=== PATIENT | female | born 1950 | race Two or more races ===

== ENCOUNTER 2017-08-22 13:35 | Observation (INO) | payer OTHER ==
[2017-08-22 16:21] LABS: BASO % 0.5 % (0-2.0); EOS % 1.3 % (0-4.5); HEMATOCRIT 42.9 % (32.4-45.2); HEMOGLOBIN 13.8 GM/dL (10.7-15.3); LYMPH % 26.1 % (8-40); MCH 28.4 pg (25.7-33.7); MCHC 32.3 g/dl (32.0-36.0); MEAN CELL VOLUME 88.1 fl (80-96); NEUT % 59.1 % (42.8-82.8); PLATELET COUNT 254 K/MM3 (134-434); RBC 4.87 M/mm3 (3.60-5.2); RDW 14.2 % (11.6-15.6)
--- NOTE | 2017-08-22 16:29 | PDOC ---
History of Present Illness - General History Source: Patient Exam Limitations: No Limitations - History of Present Illness Initial Comments: 08/22/17 17:59 The patient is a 67-year-old female, accompanied by daughter, with a significant past medical history of HTN and hypercholesterolemia, who presents to the ED with cellulitis of the right leg that began on Thursday 08/17. The patient states that she noted a pustule on her leg that she tried to squeeze. Since then she has noted swelling and redness to the area. She denies any fever or chills. <Desiree Anderson - Last Filed: 08/22/17 18:32> <Robb Kern - Last Filed: 08/22/17 19:08> - General Chief Complaint: Pain Stated Complaint: RT LEG PAIN Time Seen by Provider: 08/22/17 15:11 Past History <Desiree Anderson - Last Filed: 08/22/17 18:32> - Past Medical History COPD: No HTN: Yes Hypercholesterolemia: Yes - Surgical History Abdominal Surgery: Yes (TUBAL LIGATION) - Suicide/Smoking/Psychosocial Hx Smoking History: Never smoked Hx Alcohol Use: No Substance Use Type: None <Robb Kern - Last Filed: 08/22/17 19:08> - Past Medical History Allergies/Adverse Reactions: Allergies Allergy/AdvReac Type Severity Reaction Status Date / Time No Known Allergies Allergy Verified 08/22/17 14:00 Home Medications: Ambulatory Orders Acetaminophen [Tylenol Extra Strength] 500 mg PO PRN PRN 08/22/17 Aspirin [ASA -] 81 mg PO DAILY 08/22/17 Calcium Carbonate [Oysco-500] 500 mg PO ASDIR 08/22/17 Docusate Sodium [Colace -] 100 mg PO DAILY 08/22/17 Lisinopril/Hydrochlorothiazide [Lisinopril-Hctz 20-25 mg Tab] 1 each PO ASDIR Simvastatin 40 mg PO ASDIR 08/22/17 Review of Systems - Review of Systems Able to Perform ROS?: Yes Comments:: 08/22/17 18:24 A complete review of 10 out of 10 review of systems is taken and is negative apart from what is previously mentioned below and in the HPI. <Desiree Anderson - Last Filed: 08/22/17 18:32> *Physical Exam - Vital Signs Last Vital Signs Temp Pulse Resp BP Pulse Ox 98.8 F 114 H 19 118/63 97 08/22/17 14:00 08/22/17 14:00 08/22/17 14:00 08/22/17 14:00 08/22/17 14:00 - Physical Exam Comments: 08/22/17 18:24 Vitals: Triage Vital signs reviewed General Appearance: no acute distress, well nourished well developed, Neck: Supple;No Nuchal rigidity Chest Wall: Nontender Cardiac: Regular rate and rhythm, no murmurs, no rubs, no gallops, Lungs: Clear to auscultation bilateral, good air movement bilaterally, Rectal: Exam deferred Extremities: Full range of motion to all extremities, no cyanosis, clubbing. Skin: +15cm x 10cm area of cellulitis with breakdown of skin in the middle. Warm and dry. Neuro: AOX3; Cranial Nerves 2-12 grossly intact, Strength intact to all extremities, Sensation intact to all extremities Psych: normal mood, normal affect <Desiree Anderson - Last Filed: 08/22/17 18:32> - Vital Signs Last Vital Signs Temp Pulse Resp BP Pulse Ox 98.8 F 114 H 19 118/63 97 08/22/17 14:00 08/22/17 14:00 08/22/17 14:00 08/22/17 14:00 08/22/17 14:00 <Robb Kern - Last Filed: 08/22/17 19:08> Heart Score/ECG Review - ECG Intrepretation Comment:: 08/22/17 18:33 EKG performed at 18:27 demonstrates rate of 100 bpm, rhythm of normal sinus, axis equal to normal. Additional findings include: Possible left atrial enlargement, left ventricular hypertrophy. No T wave inversions, no ST elevations. <Desiree Anderson - Last Filed: 08/22/17 18:32> ED Treatment Course - LABORATORY CBC & Chemistry Diagram: 08/22/17 16:10 08/22/17 16:10 - ADDITIONAL ORDERS Additional order review: Laboratory Results 08/22/17 08/22/17 08/22/17 16:10 16:10 16:00 PT with INR 11.80 INR 1.04 PTT (Actin FS) 29.2 Sodium 139 Potassium 4.3 Chloride 103 Carbon Dioxide 32 Anion Gap 4 L BUN 20 H Creatinine 1.1 H Creat Clearance w eGFR 49.85 Random Glucose 124 H Lactic Acid 1.5 Calcium 8.8 Total Bilirubin 0.6 AST 11 L ALT 19 Alkaline Phosphatase 91 Total Protein 8.3 H Albumin 3.8 08/22/17 16:10 RBC 4.87 MCV 88.1 MCHC 32.3 RDW 14.2 MPV 9.0 Neutrophils % 59.1 Lymphocytes % 26.1 Monocytes % 13.0 H Eosinophils % 1.3 Basophils % 0.5 <Desiree Anderson - Last Filed: 08/22/17 18:32> - LABORATORY CBC & Chemistry Diagram: 08/22/17 16:10 08/22/17 16:10 <Robb Kern - Last Filed: 08/22/17 19:08> Medical Decision Making - Medical Decision Making 08/22/17 19:07 Large area of cellulitis to right hernández. We'll treat with IV clindamycin observe and reassess overnight <Robb Kern - Last Filed: 08/22/17 19:08> *DC/Admit/Observation/Transfer - Attestations Scribe Attestion: 08/22/17 18:26 Documentation prepared by Desiree Anderson, acting as remote medical coder for Robb Kern MD. <Desiree Anderson - Last Filed: 08/22/17 18:32> - Discharge Dispostion Admit: Yes <Robb Kern - Last Filed: 08/22/17 19:08> Diagnosis at time of Disposition: Cellulitis Qualifiers: Site of cellulitis: unspecified site Qualified Code(s): L03.90 - Cellulitis, unspecified
[2017-08-22 16:44] LABS: INR 1.04 (0.82-1.09); PROTHROMBIN TIME (PATIENT) 11.8 SEC (9.98-11.88)
[2017-08-22 16:47] LABS: ACTIVATED PTT 29.2 SECONDS (26.9-34.4)
[2017-08-22 16:59] LABS: ALBUMIN 3.8 g/dl (3.4-5.0); ANION GAP 4 (8-16); BILIRUBIN,TOTAL 0.6 mg/dL (0.2-1.0); BLOOD UREA NITROGEN 20 mg/dL (7-18); CALCIUM 8.8 mg/dL (8.5-10.1); CHLORIDE 103 mmol/L (98-107); CO2 32 mmol/L (21-32); CREATININE 1.1 mg/dL (0.55-1.02); GLUCOSE,RANDOM 124 mg/dL (74-106); POTASSIUM 4.3 mmol/L (3.5-5.1); SGOT/AST 11 U/L (15-37); SGPT/ALT 19 U/L (12-78); SODIUM 139 mmol/L (136-145); TOT PROT 8.3 g/dl (6.4-8.2)
[2017-08-22 17:00] LABS: ALK PHOS 91 U/L (45-117)
[2017-08-22] MEDS ORDERED: CLINDAMYCIN 600MG PREMIX IVPB 600 MG/50 ML BAG IVPB ONE ×2 (17:16→17:51)
--- NOTE | 2017-08-22 17:52 | HP ---
CHIEF COMPLAINT: Right hernández pain PCP: Not on staff HISTORY OF PRESENT ILLNESS: Patient is a 67 year old female with a PMHx of HTN, HLD, CAD s/p catheterization who was sent over by her Primary Care Physician for erythema and cellulitis of the right hernández. Patient states on Friday she noticed her leg was starting to hurt and when she looked at her hernández she noticed it was red, swollen with a pustule forming and she started to poke and itch at it. She initially thought something bit her and did not do anything. The pain and swelling worsened in the last couple of days to the point it was difficulty to walk on that leg, which prompted her to go visit her PCP. When she arrived at her PCP's office, she recommend to have it evaluated in the ED for possible I&D and IV antibiotics. Patient does admit to having chills that started today. Otherwise, patient denies any fever, nausea, vomiting, abdominal pain, chest pain, palpitations, shortness of breath, headaches, acute vision changes. Patient denies any trauma or injury to the area ER course was notable for: (1) Clindamycin 600mg IV given in ED (2) Blood cultures sent (3) Recent Travel: Denies PAST MEDICAL HISTORY: HTN, HLD, CAD PAST SURGICAL HISTORY: , Cardiac Catheterization (9 years ago) Social History: Smoking: Denies Alcohol: Denies Drugs: Denies Family History: Unable to recall Allergies: No Known Allergies Allergy (Verified 08/22/17 14:00) HOME MEDICATIONS: Home Medications Medication Instructions Recorded Acetaminophen [Tylenol Extra 500 mg PO PRN PRN 08/22/17 Strength] Aspirin [ASA -] 81 mg PO DAILY 08/22/17 Calcium Carbonate [Oysco-500] 500 mg PO ASDIR 08/22/17 Docusate Sodium [Colace -] 100 mg PO DAILY 08/22/17 Lisinopril/Hydrochlorothiazide 1 each PO ASDIR 08/22/17 [Lisinopril-Hctz 20-25 mg Tab] Simvastatin 40 mg PO ASDIR 08/22/17 REVIEW OF SYSTEMS CONSTITUTIONAL: chills Absent: fever, diaphoresis, generalized weakness, malaise, loss of appetite, weight change HEENT: Absent: rhinorrhea, nasal congestion, throat pain, throat swelling, difficulty swallowing, mouth swelling, ear pain, eye pain, visual changes CARDIOVASCULAR: Absent: chest pain, syncope, palpitations, irregular heart rate, lightheadedness , peripheral edema RESPIRATORY: Absent: cough, shortness of breath, dyspnea with exertion, orthopnea, wheezing, stridor, hemoptysis GASTROINTESTINAL: Absent: abdominal pain, abdominal distension, nausea, vomiting, diarrhea, constipation, melena, hematochezia GENITOURINARY: Absent: dysuria, frequency, urgency, hesitancy, hematuria, flank pain, genital pain MUSCULOSKELETAL: Absent: myalgia, arthralgia, joint swelling, back pain, neck pain SKIN: eythema and swelling of right Hernández Absent: rash, itching, pallor HEMATOLOGIC/IMMUNOLOGIC: Absent: easy bleeding, easy bruising, lymphadenopathy, frequent infections ENDOCRINE: Absent: unexplained weight gain, unexplained weight loss, heat intolerance, cold intolerance NEUROLOGIC: Absent: headache, focal weakness or paresthesias, dizziness, unsteady gait, seizure, mental status changes, bladder or bowel incontinence PSYCHIATRIC: Absent: anxiety, depression, suicidal or homicidal ideation, hallucinations. PHYSICAL EXAMINATION Vital Signs - 24 hr 08/22/17 14:00 Temperature 98.8 F Pulse Rate 114 H Respiratory 19 Rate Blood Pressure 118/63 O2 Sat by Pulse 97 Oximetry (%) GENERAL: Awake, alert, and fully oriented, in no acute distress. HEAD: Normal with no signs of trauma. EYES: Pupils equal, round and reactive to light, extraocular movements intact, sclera anicteric, conjunctiva clear. EARS, NOSE, THROAT: Oropharynx clear without exudates. Moist mucous membranes. NECK: Normal range of motion, supple without lymphadenopathy, JVD, or masses. LUNGS: Breath sounds equal, clear to auscultation bilaterally. No wheezes, and no crackles. No accessory muscle use. HEART: Regular rate and rhythm, normal S1 and S2 without murmur, rub or gallop. ABDOMEN: Soft, nontender, not distended, normoactive bowel sounds, no guarding, no rebound, no masses. . MUSCULOSKELETAL: Normal range of motion at all joints. No bony deformities or tenderness. No CVA tenderness. UPPER EXTREMITIES: 2+ pulses, warm, well-perfused. No cyanosis. No clubbing. No peripheral edema. LOWER EXTREMITIES: 2+ pulses, warm, well-perfused. No calf tenderness. 1+ non- pitting edema NEUROLOGICAL: Cranial nerves II-XII intact. Normal speech. Motor strength 5/5 bilaterally with sensory intact throughout. dp pulses 2+ bilaterally. Knee reflexes 2+ bilaterally PSYCHIATRIC: Cooperative. Good eye contact. Appropriate mood and affect. SKIN: Erythema, warmth and swelling of right hernández with a [id number] fluctuant mass with pustules noted but non draining and straining up to the knees Laboratory Results - last 24 hr 08/22/17 08/22/17 08/22/17 16:00 16:10 16:10 WBC 7.0 RBC 4.87 Hgb 13.8 Hct 42.9 MCV 88.1 MCH 28.4 MCHC 32.3 RDW 14.2 Plt Count 254 MPV 9.0 Neutrophils % 59.1 Lymphocytes % 26.1 Monocytes % 13.0 H Eosinophils % 1.3 Basophils % 0.5 PT with INR 11.80 INR 1.04 PTT (Actin FS) 29.2 Sodium Potassium Chloride Carbon Dioxide Anion Gap BUN Creatinine Creat Clearance w eGFR Random Glucose Lactic Acid 1.5 Calcium Total Bilirubin AST ALT Alkaline Phosphatase Total Protein Albumin 08/22/17 16:10 WBC RBC Hgb Hct MCV MCH MCHC RDW Plt Count MPV Neutrophils % Lymphocytes % Monocytes % Eosinophils % Basophils % PT with INR INR PTT (Actin FS) Sodium 139 Potassium 4.3 Chloride 103 Carbon Dioxide 32 Anion Gap 4 L BUN 20 H Creatinine 1.1 H Creat Clearance w eGFR 49.85 Random Glucose 124 H Lactic Acid Calcium 8.8 Total Bilirubin 0.6 AST 11 L ALT 19 Alkaline Phosphatase 91 Total Protein 8.3 H Albumin 3.8 ASSESSMENT/PLAN: Patient is a 67 year old female who was sent over by her primary care physician for evaluation of right hernández cellulitis. Patient admitted for further monitoring and management. Right Hernández Cellulitis -No signs of sepsis or sirs. Likely Furuncle with area of erythema, warmth and swelling with pustule formation. -Clindamycin 600mg IVPB given in ED. Will start Vancomycin 1000mg one time dose with Ceftriaxone 1gm IVPB daily for MRSA and gram negative coverage as majority of furuncles are staph related. -Blood cultures sent -MRSA screen ordered -Will order U/S of right hernández to rule out any abscess formation -Surgery consult placed for evaluation of I&D HTN-Controlled -Continue Lisinopril/HCTZ 20-15 daily -Continue to monitor BP HLD -Continue Simvastatin 40mg daily F/E/N -Tolerates PO. No need for fluids -Electrolytes wnl -Sodium controlled diet Prophylaxis -Moderate risk. SCD's for DVT -No GI required Disposition -Full code -Will need IV Abx for cellulitis. Visit type - Emergency Visit Emergency Visit: Yes ED Registration Date: 08/22/17 Care time: The patient presented to the Emergency Department on the above date and was hospitalized for further evaluation of their emergent condition. - New Patient This patient is new to me today: Yes Date on this admission: 08/22/17 - Critical Care Critical Care patient: No
[2017-08-22] MEDS ORDERED: PATIENT'S OWN MEDICATION (NON-FORMULARY) (Simvastatin [Simvastatin] 40 MG) PO SCH (18:00)
[2017-08-22] MEDS ORDERED: PATIENT'S OWN MEDICATION (NON-FORMULARY) (Lisinopril/Hydrochlorothiazide [Lisinopril-Hctz PO SCH (18:00)
[2017-08-22] MEDS ORDERED: VANCOMYCIN 1,000 MG in DEXTROSE 5%-WATER - 250 ML IVPB ONE (21:12)
[2017-08-22] MEDS ORDERED: CEFTRIAXONE 1 GM in DEXTROSE 5%-WATER - 100 ML IVPB SCH (21:15)
[2017-08-22] MEDS: CEFTRIAXONE 1 G/50 ML PREMIX 50 ML IVPB SCH (22:00)
[2017-08-22] MEDS ORDERED: CEFTRIAXONE 1 GM/50 ML BAG ONE (22:40)
[2017-08-22] MEDS ORDERED: VANCOMYCIN 1 GRAM (PRE-DOCKED) 1,000 MG/250 ML BAG IVPB ONE (22:40)
--- NOTE | 2017-08-22 23:09 | PN ---
Teaching Attending Note Name of Resident: Melissa Hammonds ATTENDING PHYSICIAN STATEMENT I saw and evaluated the patient. Chart, data, imaging reviewed. I reviewed the resident's note and discussed the case with the resident. I agree with the resident's findings and plan as documented. SUBJECTIVE: 67 year old woman with a PMHx of HTN, HLD sent to hospital by PCP after she developed right hernández swelling, erythema which started 08/17/16. Patient was scratching her leg at that time and it worsened. C/o some subjective fever and chills. Denied any trauma to leg or insec bites. Sent to ER for possible pustule drainage. Received clindamycin in the ER. OBJECTIVE: Last Vital Signs Temp Pulse Resp BP Pulse Ox 98.8 F 114 H 19 118/63 97 08/22/17 14:00 08/22/17 14:00 08/22/17 14:00 08/22/17 14:00 08/22/17 14:00 General- nontoxic appearing, nad, comfortable heent - at, nc, moist oral mucosa neck - supple, no neck masses cv -s1+s2+ RRR chest cta b/l abdomen soft , ext right medial leg- erythema with pustule in the middle, some medial erythematous stranding. Very tender to touch. Abnormal Lab Results 08/22/17 08/22/17 16:10 16:10 Monocytes % 13.0 H Anion Gap 4 L BUN 20 H Creatinine 1.1 H Random Glucose 124 H AST 11 L Total Protein 8.3 H right lower extremity ultrasound- no abscess seen, area of confluent hypogenicity which may represent phlegmon or hematoma ASSESSMENT AND PLAN: #Cellulitis/ furuncle of right lower extremity with erythematous stranding to groin. Patient otherwise hemodynamically stable. -blood cultures x2 -surgery consult for possible I,D -if I,D performed, send swab for culture -vancomycin 1g IV q12hrs -ceftriaxone 1gIV -ID consult -heparin sc for dvt pxx -DV
[2017-08-23] MEDS: ATORVASTATIN CA 20 MG TABLET (FP) PO SCH ×2 (01:32→21:49)
[2017-08-23 04:07] VITALS: BMI 38.0
[2017-08-23 08:36] LABS: HEMATOCRIT 38.9 % (32.4-45.2); HEMOGLOBIN 12.7 GM/dL (10.7-15.3); MCH 28.6 pg (25.7-33.7); MCHC 32.7 g/dl (32.0-36.0); MEAN CELL VOLUME 87.4 fl (80-96); MEAN PLT VOLUME 9.1 fl (7.5-11.1); PLATELET COUNT 221 K/MM3 (134-434); RBC 4.45 M/mm3 (3.60-5.2); RDW 14.2 % (11.6-15.6); WHITE BLOOD COUNT 5.6 K/mm3 (4.0-10.0)
[2017-08-23] MEDS ORDERED: HYDROCHLOROTHIAZIDE 25 MG TABLET (FP) PO SCH (10:00)
[2017-08-23] MEDS: CEFTRIAXONE 1 G/50 ML PREMIX 50 ML IVPB SCH (10:41)
[2017-08-23] MEDS: ASPIRIN 81 MG CHEWABLE TABLETS PO SCH (10:42)
[2017-08-23] MEDS: LISINOPRIL 20 MG TABLET (FP) PO SCH (10:42)
[2017-08-23] MEDS ORDERED: ACETAMINOPHEN 325 MG TABLET (FP) PO PRN (11:09)
[2017-08-23] MEDS ORDERED: SODIUM CHLORIDE 1,000 ML IV STA (11:10)
--- NOTE | 2017-08-23 11:12 | PN ---
Progress Note (short form) - Note Progress Note: c/o pain on RLE, no improvement since yesterday in erythema. pain controlled with pain medication. denies CP, SOB, fever, chills, N/V/C/D, trauma ot the leg. has not taken abx for infection Current Medications Generic Name Dose Route Start Last Admin Trade Name Freq PRN Reason Stop Dose Admin Aspirin 81 mg 08/23/17 10:00 08/23/17 10:42 Asa - PO 81 mg DAILY DAVID Administration Atorvastatin Calcium 20 mg 08/22/17 22:00 08/23/17 01:32 Lipitor - PO Not Given HS DAVID Hydrochlorothiazide 25 mg 08/23/17 10:00 08/23/17 10:42 Hctz - PO 25 mg DAILY DAVID Administration CEFTRIAXONE 1 G/50 ML PREMIX 50 mls @ 100 mls/hr 08/22/17 21:15 08/23/17 10: 41 Ceftriaxone 1 Gm-D5w Bag IVPB 100 mls/hr DAILY DAVID Administration Lisinopril 20 mg 08/23/17 10:00 08/23/17 10:42 Prinivil PO 20 mg DAILY DAVID Administration Last Vital Signs Temp Pulse Resp BP Pulse Ox 98.2 F 94 H 18 124/68 98 08/23/17 10:43 08/23/17 10:43 08/23/17 10:43 08/23/17 10:43 08/23/17 04:07 General NAD CV S1 S2 RRR no murmur/rub/gallop Lungs CTA B/L no wheezing/rales/rhonchi Abdomen soft NT/ND obses Extremity RLE subcetimenter fluctunat lesion on anterior hernández with surrounding erythema and tenderness A/P 67yo F with PMH HTN and dyslipemia presented to the ER with RLE swelling and erythema 1. RLE cellulitis- with possible underlying phelgmon vs hematoma. Consult Surgery for I&D. received clinda in the ER and now on ceftriaxone. will switch to Doxy 100mg BID, will send Cx if I&D. f/u Cx. check A1c to r/o DM 2. Tachycardia- NSR. due to pain or dehydration. give 1L NS and monitor 3. RAGHAV- likely due to dehydration. hold HCTZ. can cont acei. avoid nephrotoxic agents 4. HTN- controlled here. hold diuretic. monitor 5. Obesity- lifestyle modifications. 6. Dyslipidemia- on statin 7. DVT ppx- EAM Visit type - Emergency Visit Emergency Visit: Yes ED Registration Date: 08/22/17 Care time: The patient presented to the Emergency Department on the above date and was hospitalized for further evaluation of their emergent condition. - New Patient This patient is new to me today: Yes Date on this admission: 08/23/17 - Critical Care Critical Care patient: No - Discharge Referral Referred to [facility] Med P.C.: No
--- NOTE | 2017-08-23 12:44 | CONSULT ---
- Consultation REQUESTING PROVIDER: Aj NUNEZ CONSULT REQUEST: We have been asked to surgically evaluate this patient for management of an ABSSSI of the right lower extremity PCP:Viola Rocha HISTORY OF PRESENT ILLNESS:67 y/o female presented w/ # days of progressive pain and swelling of an are of the RLE; she denies known trauma; NOC. PMHx: hypertension; hyperlipidemia PSHx: none Home Medications Medication Instructions Recorded Acetaminophen [Tylenol Extra 500 mg PO PRN PRN 08/22/17 Strength] Aspirin [ASA -] 81 mg PO DAILY 08/22/17 Calcium Carbonate [Oysco-500] 500 mg PO ASDIR 08/22/17 Docusate Sodium [Colace -] 100 mg PO DAILY 08/22/17 Lisinopril/Hydrochlorothiazide 1 each PO ASDIR 08/22/17 [Lisinopril-Hctz 20-25 mg Tab] Simvastatin 40 mg PO ASDIR 08/22/17 Allergies Allergy/AdvReac Type Severity Reaction Status Date / Time No Known Allergies Allergy Verified 08/22/17 14:00 PHYSICAL EXAM: GENERAL: Awake, alert, and fully oriented, in no acute distress. HEAD: Normal with no signs of trauma. EYES: sclera anicteric, conjunctiva clear. NECK: Normal ROM, supple without lymphadenopathy, JVD, or masses. ABDOMEN: Soft, nontender, not distended, normoactive bowel sounds, no guarding, no rebound, no masses. No organomegaly. MUSCULOSKELETAL: Normal ROM at all joints. No bony deformities. No CVA tenderness. UPPER EXTREMITIES: 2+ pulses, warm, well-perfused. No cyanosis. Cap refill <2 seconds. No edema. LOWER EXTREMITIES: 2+ pulses, warm, well-perfused. No calf tenderness. No peripheral LLE edema. NEUROLOGICAL: Normal speech, gait not observed. PSYCH: Cooperative. Good eye contact. Appropriate mood and affect. SKIN: Warm, dry, normal turgor, no rashes or lesions noted. LLE- area of ttp mid shaft of the tibia; some ? pustules ?; no erythema; no fluctuance per se; there is surrounding edema. Vital Signs Temperature 98.2 F 08/23/17 10:43 Pulse Rate 94 H 08/23/17 10:43 Respiratory Rate 18 08/23/17 10:43 Blood Pressure 124/68 08/23/17 10:43 O2 Sat by Pulse Oximetry (%) 98 08/23/17 04:07 Lab Results WBC 5.6 K/mm3 (4.0-10.0) 08/23/17 06:00 RBC 4.45 M/mm3 (3.60-5.2) 08/23/17 06:00 Hgb 12.7 GM/dL (10.7-15.3) 08/23/17 06:00 Hct 38.9 % (32.4-45.2) 08/23/17 06:00 MCV 87.4 fl (80-96) 08/23/17 06:00 MCHC 32.7 g/dl (32.0-36.0) 08/23/17 06:00 RDW 14.2 % (11.6-15.6) 08/23/17 06:00 Plt Count 221 K/MM3 (134-434) 08/23/17 06:00 Sodium 139 mmol/L (136-145) 08/22/17 16:10 Potassium 4.3 mmol/L (3.5-5.1) 08/22/17 16:10 Chloride 103 mmol/L (98-107) 08/22/17 16:10 Carbon Dioxide 32 mmol/L (21-32) 08/22/17 16:10 Anion Gap 4 (8-16) L 08/22/17 16:10 BUN 20 mg/dL (7-18) H 08/22/17 16:10 Creatinine 1.1 mg/dL (0.55-1.02) H 08/22/17 16:10 Random Glucose 124 mg/dL (74-106) H 08/22/17 16:10 Calcium 8.8 mg/dL (8.5-10.1) 08/22/17 16:10 INR 1.04 (0.82-1.09) 08/22/17 16:10 US report and images reiewed IMP:? hematoma and/or phlegmon vs. abscess of RLE most likely post traumatic in nature. PLAN: Continue present tx.; leg eleation; reassess 24 hours; keep NPO after MN if I and D needed 08/24/17. Travis Zimmer MD FACS Visit type - Case Type Case Type: ED Admission - Emergency Emergency Visit: Yes ED Registration Date: 08/22/17 Care time: The patient presented to the Emergency Department on the above date and was hospitalized for further evaluation of their emergent condition. - New patient This patient is new to me today: Yes Date on this admission: 08/23/17 - Critical Care Critical Care patient: No
--- NOTE | 2017-08-23 16:56 | EKG ---
Test Reason : Blood Pressure : / mmHG Vent. Rate : 100 BPM Atrial Rate : 100 BPM P-R Int : 184 ms QRS Dur : 080 ms QT Int : 332 ms P-R-T Axes : 042 -01 019 degrees QTc Int : 428 ms NORMAL SINUS RHYTHM POSSIBLE LEFT ATRIAL ENLARGEMENT LEFT VENTRICULAR HYPERTROPHY ABNORMAL ECG NO PREVIOUS ECGS AVAILABLE Confirmed by GAVIN COLLINS MD ([id number]) on 08/23/2017 4:55:54 PM Referred By: Confirmed By:GAVIN COLLINS MD
[2017-08-23] MEDS: DOXYCYCLINE INJECTION 100 MG in DEXTROSE 5%-WATER - 100 ML IVPB SCH (21:48)
[2017-08-24 07:40] LABS: BASO % 0.5 % (0-2.0); EOS % 2.7 % (0-4.5); HEMATOCRIT 39.4 % (32.4-45.2); HEMOGLOBIN 12.8 GM/dL (10.7-15.3); MCH 28.5 pg (25.7-33.7); MCHC 32.5 g/dl (32.0-36.0); MEAN CELL VOLUME 87.6 fl (80-96); MEAN PLT VOLUME 8.8 fl (7.5-11.1); MONO % 13.7 % (3.8-10.2); NEUT % 51.1 % (42.8-82.8); PLATELET COUNT 242 K/MM3 (134-434); RDW 14.1 % (11.6-15.6)
[2017-08-24 08:30] LABS: ANION GAP 9 (8-16); BLOOD UREA NITROGEN 17 mg/dL (7-18); CALCIUM 9.2 mg/dL (8.5-10.1); CHLORIDE 103 mmol/L (98-107); CO2 27 mmol/L (21-32); CREATININE 0.9 mg/dL (0.55-1.02); GLUCOSE,RANDOM 106 mg/dL (74-106); POTASSIUM 4.1 mmol/L (3.5-5.1); SODIUM 139 mmol/L (136-145)
--- NOTE | 2017-08-24 10:22 | PN ---
Teaching Attending Note Name of Resident: Melissa Hammonds ATTENDING PHYSICIAN STATEMENT I saw and evaluated the patient. I reviewed the resident's note and discussed the case with the resident. I agree with the resident's findings and plan as documented. SUBJECTIVE:RLE pain improved. conitnues to have some throbbing but improved. dneies Cp, SOB, fever, chills, N/V/C/D OBJECTIVE: Last Vital Signs Temp Pulse Resp BP Pulse Ox 98.0 F 86 20 105/65 98 08/24/17 06:16 08/24/17 06:16 08/24/17 06:16 08/24/17 06:16 08/24/17 01:00 : General NAD Lungs CTA B/L no wheezing/rales/rhonchi Extremity RLE subcetimenter fluctunat lesion on anterior hernández with surrounding erythema and tenderness. no warmth A/P 67yo F with PMH HTN and dyslipemia presented to the ER with RLE swelling and erythema 1. RLE cellulitis- with possible underlying phelgmon vs hematoma. looks improved. awaiting surgery decision if will need I&D. cont doxy day 2. Cx reported negative till now. 2. Pre-diabetes- A1c 6.1. counseled on need for liefstyle modification. diet and weight loss. instrument maker counseling. informed need level repeated in 3 months. may require medication at that time. 3. Tachycardia- likely dehydration. resolved. 4. RAGHAV- likely due to dehydration. hold HCTZ. can cont acei. avoid nephrotoxic agents. resolved 5. HTN- controlled here. hold diuretic. monitor 6. Obesity- lifestyle modifications. 7. Dyslipidemia- on statin 8. DVT ppx- EAM 9. d/c planning tomorrow pending improvement
[2017-08-24] MEDS: ASPIRIN 81 MG CHEWABLE TABLETS PO SCH ×2 (10:34→12:48)
[2017-08-24] MEDS: DOXYCYCLINE INJECTION 100 MG in DEXTROSE 5%-WATER - 100 ML IVPB SCH ×2 (10:34→21:32)
[2017-08-24] MEDS: LISINOPRIL 20 MG TABLET (FP) PO SCH (10:35)
--- NOTE | 2017-08-24 10:54 | PN ---
Progress Note (short form) - Note Progress Note: Attending Surgeon Less pain VSS AF LLE-less tenderness; no erythema; less STS WBC-wnl IMP: improving PLAN Continue present tx. no OR for today; continue to monitor. Gm Zimmer MD FACS
[2017-08-24] MEDS ORDERED: ZOLPIDEM TARTRATE 5 MG TABLET PO ONE ×2 (18:00→20:00)
--- NOTE | 2017-08-24 19:27 | PN ---
Physical Exam: SUBJECTIVE: Patient seen and examined by me at bedside. Patient reports her right anterior hernández has improved significantly since admission and that her pain is improved significantly. Otherwise, patient denies any fever, chills, nausea, vomiting, abdominal pain, chest pain, palpitations, shortness of breath , headaches. OBJECTIVE: Vital Signs Period Temp Pulse Resp BP Sys/Wyatt Pulse Ox Last 24 Hr 97.4 F-98.6 F 84-94 16-20 105-125/60-72 98 GENERAL: Awake, alert, and fully oriented, in no acute distress. EYES: Pupils equal, round and reactive to light, extraocular movements intact, sclera anicteric, conjunctiva clear. LUNGS: Breath sounds equal, clear to auscultation bilaterally. No wheezes, and no crackles. No accessory muscle use. HEART: Regular rate and rhythm, normal S1 and S2 without murmur, rub or gallop. ABDOMEN: Soft, nontender, not distended, normoactive bowel sounds, no guarding, no rebound, no masses. . LOWER EXTREMITIES: 2+ pulses, warm, well-perfused. No calf tenderness. 1+ non- pitting edema SKIN: Erythema, warmth and swelling of right hernández with a fluctuant mass with pustules noted but non draining Laboratory Results - last 24 hr 08/24/17 08/24/17 08/24/17 06:00 06:00 06:00 WBC 5.0 RBC 4.50 Hgb 12.8 Hct 39.4 MCV 87.6 MCH 28.5 MCHC 32.5 RDW 14.1 Plt Count 242 MPV 8.8 Neutrophils % 51.1 Lymphocytes % 32.0 D Monocytes % 13.7 H Eosinophils % 2.7 D Basophils % 0.5 Sodium 139 Potassium 4.1 Chloride 103 Carbon Dioxide 27 Anion Gap 9 BUN 17 Creatinine 0.9 Random Glucose 106 Hemoglobin A1c % 6.1 H Calcium 9.2 Active Medications Generic Name Dose Route Start Last Admin Trade Name Freq PRN Reason Stop Dose Admin Acetaminophen 650 mg 08/23/17 11:09 Tylenol - PO Q6H PRN pain Aspirin 81 mg 08/23/17 10:00 08/24/17 12:48 Asa - PO 81 mg DAILY DAVID Administration Atorvastatin Calcium 20 mg 08/22/17 22:00 08/23/17 21:49 Lipitor - PO 20 mg HS DAVID Administration Doxycycline Hyclate 100 mg/ 100 mls @ 50 mls/hr 08/23/17 22:00 08/24/17 10:34 Dextrose IVPB 50 mls/hr BID DAVID Administration Lisinopril 20 mg 08/23/17 10:00 08/24/17 10:35 Prinivil PO 20 mg DAILY DAVID Administration ASSESSMENT/PLAN: Patient is a 67 year old female who was sent over by her primary care physician for evaluation of right hernández cellulitis. Patient admitted for further monitoring and management. Right Anterior Hernández Cellulitis -Improving -No signs of sepsis or sirs. Likely Furuncle with area of erythema, warmth and swelling with pustule formation. -Possible underlying Phelgmon vs. Hematoma -Surgery decided on no I&D -Will continue Doxycycline 100mg BID -Cultures negative Pre-Diabetes -A1c of 6.1% -Nutrition consult placed -Will need repeat level in 3 months and patient understands -No need for medications currently RAGHAV-Resolved -Likely secondary to dehydration -Hold HCTZ -Avoid nephrotoxic medications HTN-Controlled -Continue Lisinopril 20mg daily -Continue to monitor BP HLD -Continue Simvastatin 40mg daily F/E/N -Tolerates PO. No need for fluids -Electrolytes wnl -Sodium controlled diet Prophylaxis -Moderate risk. EAM -No GI required Disposition -Full code -Will need IV Abx for cellulitis. Likely discharge tomorrow if improvement continues Visit type - Emergency Visit Emergency Visit: Yes ED Registration Date: 08/22/17 Care time: The patient presented to the Emergency Department on the above date and was hospitalized for further evaluation of their emergent condition. - New Patient This patient is new to me today: No - Critical Care Critical Care patient: No
[2017-08-24] MEDS ORDERED: PT OWN MED DRAWER 7, Y5N ONE (21:00)
[2017-08-24] MEDS: ATORVASTATIN CA 20 MG TABLET (FP) PO SCH (21:31)
[2017-08-25] MEDS: ASPIRIN 81 MG CHEWABLE TABLETS PO SCH (10:12)
[2017-08-25] MEDS: LISINOPRIL 20 MG TABLET (FP) PO SCH (10:12)
[2017-08-25] MEDS: DOXYCYCLINE INJECTION 100 MG in DEXTROSE 5%-WATER - 100 ML IVPB SCH (10:12)
--- NOTE | 2017-08-25 11:56 | DS ---
Physical Exam: SUBJECTIVE: Patient seen and examined. pain resolved in the leg. denies Cp, SOB , fever, cills, N/V/C/d OBJECTIVE: Vital Signs Period Temp Pulse Resp BP Sys/Wyatt Pulse Ox Last 24 Hr 97.7 F-98.1 F 84-92 18-20 102-119/61-71 97 PHYSICAL EXAM GENERAL: The patient is awake, alert, and fully oriented, in no acute distress. HEAD: Normal with no signs of trauma. EYES: PERRL, extraocular movements intact, sclera anicteric, conjunctiva clear. ENT: Ears normal, nares patent, oropharynx clear without exudates, moist mucous membranes. NECK: Trachea midline, full range of motion, supple. LUNGS: Breath sounds equal, clear to auscultation bilaterally, no wheezes, no crackles, no accessory muscle use. HEART: Regular rate and rhythm, S1, S2 without murmur, rub or gallop. ABDOMEN: Soft, nontender, nondistended, normoactive bowel sounds, no guarding, no rebound, no hepatosplenomegaly, no masses. EXTREMITIES: 2+ pulses, warm, well-perfused, no edema. NEUROLOGICAL: Cranial nerves II through XII grossly intact. Normal speech, gait not observed. PSYCH: Normal mood, normal affect. SKIN: Warm, dry, normal turgor, RLE 1cm bleb now draining serous fluid. no erythema/tender/warmth LABS HOSPITAL COURSE: Date of Admission:08/22/17 Date of Discharge: 08/25/17 Admitting diagnosis: RLE celluliits, pre-diabetes Pre hospital course Patient is a 67 year old female with a PMHx of HTN, HLD, CAD s/p catheterization who was sent over by her Primary Care Physician for erythema and cellulitis of the right hernández. Patient states on Friday she noticed her leg was starting to hurt and when she looked at her hernández she noticed it was red, swollen with a pustule forming and she started to poke and itch at it. She initially thought something bit her and did not do anything. The pain and swelling worsened in the last couple of days to the point it was difficulty to walk on that leg, which prompted her to go visit her PCP. When she arrived at her PCP's office, she recommend to have it evaluated in the ED for possible I&D and IV antibiotics. Patient does admit to having chills that started today. Otherwise, patient denies any fever, nausea, vomiting, abdominal pain, chest pain, palpitations, shortness of breath, headaches, acute vision changes. Patient denies any trauma or injury to the area Subsequent hospital course medicine observation. started on doxy. u/s showing phelgmon vs hematoma. evaluated by surgery and determined did not require surgical intervention. found to be pre-diabetic. (A1c 6.1). counseled by fruit or nut farmworker about diet changes. d/c home on doxy to complete 7 days. Minutes to complete discharge: 40 Discharge Summary Reason For Visit: CELLULITIS Current Active Problems Cellulitis (Acute) Pre-diabetes (Acute) HTN (hypertension) (Chronic) Condition: Improved - Instructions Diet, Activity, Other Instructions: You were admitted to the hospital due to a skin infection on your leg It is improving with antibiotics. Continue to take antibiotics until completed, even if your skin appears clear While you were here you were found to be pre-diabetic. Follow the handout given to you by the fruit or nut farmworker on how to adjust your diet Your blood pressure medication was changed in the hospital. Please take new medication and throw out your old ones. Follow a diabetic, low salt diet Follow up with the surgeon. He will evaluate your leg and decide if you will need further treatment for your skin infection. Follow up with your primary care doctor this week, He should have your A1c ( diabetic number) in 3 months. And decide if you need medications. Return to the ER if you develop fever (temp >101) Referrals: STAFF,NOT ON [Primary Care Provider] - - Home Medications Comprehensive Discharge Medication List: Ambulatory Orders Acetaminophen [Tylenol Extra Strength] 500 mg PO PRN PRN 08/22/17 Aspirin [ASA -] 81 mg PO DAILY 08/22/17 Calcium Carbonate [Oysco-500] 500 mg PO ASDIR 08/22/17 Docusate Sodium [Colace -] 100 mg PO DAILY 08/22/17 Simvastatin 40 mg PO ASDIR 08/22/17 Lisinopril [Prinivil] 20 mg PO DAILY #30 tablet 08/25/17 This patient is new to me today: No Emergency Visit: Yes ED Registration Date: 08/22/17 Care time: The patient presented to the Emergency Department on the above date and was hospitalized for further evaluation of their emergent condition. Critical Care patient: No - Discharge Referral Referred to [facility] Med P.[facility].: No
[2017-08-25 15:29] VITALS: BP 114/71; PULSE 86; TEMP 98.3
== END 2017-08-25 15:36 | disposition home or self-care (01) ==
LOC: JERFT 13:35 → JER 13:35 → JERBED 18:05 → J7W 08-23 04:08
PROVIDERS: ADMIT Emergency Medicine; ATTEND Internal Medicine
PROC: 3E03329 Introduction of Other Anti-infective into Peripheral Vein, Percutaneous Approach (ICD-10-PCS; principal; 2017-08-22)
PROC: 3E0337Z Introduction of Electrolytic and Water Balance Substance into Peripheral Vein, Percutaneous Approach (ICD-10-PCS; 2017-08-22)
DX: L03.115 Cellulitis of right lower limb (principal); I10 Essential (primary) hypertension; I25.10 Atherosclerotic heart disease of native coronary artery without angina pectoris; E78.5 Hyperlipidemia, unspecified; R73.03 Prediabetes; R00.0 Tachycardia, unspecified; N17.9 Acute kidney failure, unspecified; E66.9 Obesity, unspecified; Z68.38 Body mass index [BMI] 38.0-38.9, adult; Z79.82 Long term (current) use of aspirin; Z98.61 Coronary angioplasty status
CPT/HCPCS: 36415; 76882; 80048; 80053; 83036; 83605; 85025; 85027; 85610; 85730; 87040; 93005; 93010; 99285-25; G0378

== ENCOUNTER 2024-04-14 11:38 | Emergency (ER) | payer OTHER ==
[2024-04-14 11:43] VITALS: TEMP 98.6; BMI 38.9
[2024-04-14 13:29] LABS: BASO % 0.6 % (0-2.0); EOS % 1.8 % (0-4.5); HEMATOCRIT 40.2 % (32.4-45.2); HEMOGLOBIN 13.1 GM/dL (10.7-15.3); LYMPH % 41.5 % (8-40); MCH 27.7 pg (25.7-33.7); MCHC 32.6 g/dl (32.0-36.0); MEAN CELL VOLUME 84.9 fl (80-96); MEAN PLT VOLUME 8.5 fl (7.5-11.1); MONO % 15.4 % (3.8-10.2); NEUT % 40.7 % (42.8-82.8); PLATELET COUNT 207 10^3/uL (134-434); RBC 4.74 M/mm3 (3.60-5.2); RDW 15.1 % (11.6-15.6); WHITE BLOOD COUNT 4.4 K/mm3 (4.0-10.0)
[2024-04-14 13:49] LABS: POTASSIUM 4.5 mmol/L (3.5-5.1)
[2024-04-14 13:51] LABS: BLOOD UREA NITROGEN 16.1 mg/dL (7-18); CALCIUM 9.8 mg/dL (8.5-10.1)
[2024-04-14 13:55] LABS: CREATININE 0.9 mg/dL (0.55-1.3)
[2024-04-14 13:56] LABS: BILIRUBIN,TOTAL 0.5 mg/dL (0.2-1); TOT PROT 7.7 g/dl (6.4-8.2)
[2024-04-14 14:09] LABS: PH,URINE 7.5 (5.0-8.0); URINE APPEARANCE CLEAR; URINE BILIRUBIN NEGATIVE (NEGATIVE); URINE COLOR YELLOW; URINE GLUCOSE (UA) NEGATIVE (NEGATIVE); URINE KETONE NEGATIVE (NEGATIVE); URINE LEUK ESTERASE NEGATIVE (NEGATIVE); URINE NITRITE NEGATIVE (NEGATIVE); URINE PROTEIN NEGATIVE (NEGATIVE); URINE UROBILINOGEN 0.2 mg/dL (0.2-1.0)
[2024-04-14 14:59] VITALS: BP 131/81; PULSE 77; RESP 16
[2024-04-14 17:20] LABS: HIV INTERPRETATION NEGATIVE (NEGATIVE)
== END 2024-04-14 15:42 | disposition home or self-care (01) ==
LOC: JER 11:38
DX: R00.2 Palpitations (principal); R42 Dizziness and giddiness
CPT/HCPCS: 36415; 71045-TC-FY; 80053; 81003; 84484; 85025; 86803; 87086; 87389; 93005; 93010; 99285-25

== ENCOUNTER 2024-06-04 11:24 | Emergency (ER) | payer OTHER ==
[2024-06-04 11:31] VITALS: BMI 39.3
[2024-06-04] MEDS ORDERED: ACETAMINOPHEN INJECTION 100 ML ONE (12:50)
[2024-06-04] MEDS ORDERED: METOCLOPRAMIDE HCL INJECTION 10 MG/2 ML VIAL ONE (12:50)
[2024-06-04] MEDS: METOCLOPRAMIDE HCL INJECTION 10 MG/2 ML VIAL IVPUSH ONE (13:38)
[2024-06-04] MEDS: ACETAMINOPHEN 1000 MG/100 ML BAG IVPB ONE (13:38)
[2024-06-04 13:57] LABS: BASO % 0.3 % (0-2.0); EOS % 1.2 % (0-4.5); HEMATOCRIT 42.9 % (32.4-45.2); HEMOGLOBIN 14.1 GM/dL (10.7-15.3); LYMPH % 44.2 % (8-40); MCH 27.4 pg (25.7-33.7); MEAN CELL VOLUME 83.2 fl (80-96); MEAN PLT VOLUME 8.6 fl (7.5-11.1); MONO % 9.7 % (3.8-10.2); NEUT % 44.6 % (42.8-82.8); PLATELET COUNT 246 10^3/uL (134-434); RBC 5.16 M/mm3 (3.60-5.2); RDW 15.2 % (11.6-15.6); WHITE BLOOD COUNT 4.5 K/mm3 (4.0-10.0)
[2024-06-04 14:16] LABS: POTASSIUM 4.3 mmol/L (3.5-5.1)
[2024-06-04 14:18] LABS: CALCIUM 9.8 mg/dL (8.5-10.1)
[2024-06-04 14:19] LABS: ALBUMIN 4.4 g/dl (3.4-5.0); BLOOD UREA NITROGEN 12.6 mg/dL (7-18)
[2024-06-04 14:24] LABS: BILIRUBIN,TOTAL 0.6 mg/dL (0.2-1); TOT PROT 8.7 g/dl (6.4-8.2)
[2024-06-04 14:31] VITALS: BP 121/72; PULSE 74; RESP 17; TEMP 97.6
== END 2024-06-04 15:13 | disposition home or self-care (01) ==
LOC: JER 11:24
PROC: 3E033NZ Introduction of Analgesics, Hypnotics, Sedatives into Peripheral Vein, Percutaneous Approach (ICD-10-PCS; principal; 2024-06-04)
PROC: 3E033GC Introduction of Other Therapeutic Substance into Peripheral Vein, Percutaneous Approach (ICD-10-PCS; 2024-06-04)
DX: R51.9 Headache, unspecified (principal)
CPT/HCPCS: 36415; 70450-TC; 80053; 83735; 84484; 85025; 93005; 93010; 96374; 96375; 99285-25; J0131